=== PATIENT | male | born 1975 | race Caucasian/White ===

== ENCOUNTER 2023-05-07 00:22 | Emergency (ER) | payer OTHER | END 2023-05-07 01:15 | disposition left against medical advice (07) | LOC: ER 00:25 | DX: Z53.21 Procedure and treatment not carried out due to patient leaving prior to being seen by health care provider (principal) ==

== ENCOUNTER 2023-05-09 04:14 | Emergency (ER) | payer OTHER ==
[~2023-05-09] VITALS: Ht 177.8 cm; Wt 77.1 kg
[2023-05-09 05:07] LABS: *BILIRUBIN,URIN NEGATIVE (NEGATIVE); *BLOOD, URINE NEGATIVE (NEGATIVE); *CLARITY,URINE CLEAR (CLEAR); *COLOR,URINE YELLOW (YELLOW); *KETONES,URINE NEGATIVE (NEGATIVE); *PROTEIN,URINE NEGATIVE (NEGATIVE); *UROBILINOGEN,URINE 0.2 E.U./dl (NORMAL); LEUKOCYTE ESTERASE ,URINE NEGATIVE (NEGATIVE); NITRITE, URINE NEGATIVE (NEGATIVE); PH,URINE 5.5 (5.0-8.0); UGLUCOSE NEGATIVE (NEGATIVE)
[2023-05-09 05:12] LABS: BASOPHILS # (AUTO) 0.1 K/UL (0.0-0.2); BASOPHILS % (AUTO) 0.6 % (0.0-2.0); EOSINOPHILS # (AUTO) 0.2 K/uL (0.0-0.7); EOSINOPHILS % (AUTO) 2.3 % (0.0-7.0); HEMATOCRIT 40.2 % (36.7-47.1); HEMOGLOBIN 13.6 g/dL (12.5-16.3); LYMPHOCYTES # (AUTO) 3.1 K/uL (0.8-4.8); LYMPHOCYTES % (AUTO) 37.1 % (20.5-51.5); MEAN CORPUSCULAR HEMOGLOBIN 31.6 uug (23.8-33.4); MEAN CORPUSCULAR HGB CONC 34 g/dL (32.5-36.3); MEAN CORPUSCULAR VOLUME 93.1 fL (73.0-96.2); MONOCYTES # (AUTO) 0.8 K/uL (0.1-1.30); NEUTROPHILS # (AUTO) 4.3 K/uL (1.8-8.9); PLATELET COUNT (AUTO) 228 K/uL (152-348); RED BLOOD CELL COUNT(AUTO) 4.32 MIL/uL (4.06-5.63); RED CELL DISTRIBUTION WIDTH 13.6 % (12.1-16.2); WHITE BLOOD COUNT (AUTO) 8.4 K/uL (3.6-10.2)
[2023-05-09 05:17] LABS: *AMPHETAMINE, URINE NEGATIVE (NEGATIVE); *BARBITURATE, URINE NEGATIVE (NEGATIVE); *BENZODIAZEPINE, URINE NEGATIVE (NEGATIVE); *CANNABINOID, URINE NEGATIVE (NEGATIVE); *COCCAINE, URINE NEGATIVE (NEGATIVE); *OPIATE, URINE NEGATIVE (NEGATIVE); *PHENCYCLIDINE SCREEN,URINE NEGATIVE (NEGATIVE); FENTANYL, URINE NEGATIVE (NEGATIVE)
[2023-05-09 05:22] LABS: CALCIUM 8.8 mg/dL (8.5-10.1); CARBON DIOXIDE 26 mmol/L (21-32); CHLORIDE 103 mmol/L (98-107); CREATININE 0.8 mg/dL (0.6-1.3); GLUCOSE 97 mg/dL (74-106); POTASSIUM 3.8 mmol/L (3.5-5.1); SODIUM SERUM 139 mmol/L (136-145); UREA NITROGEN, BLOOD 16 mg/dL (7-18)
[2023-05-09 05:24] LABS: DIFFERENTIAL COMMENT 1
[2023-05-09 05:28] LABS: ACETAMINOPHEN < 2.0 ug/mL (10-30); ALANINE AMINOTRANSFERASE 31 U/L (16-63); ALBUMIN 3.5 g/dL (3.4-5.0); ALKALINE PHOSPHATASE 131 U/L (50-136); ASPARTATE AMINOTRANSFERASE 5 U/L (15-37); BILIRUBIN,DIRECT 0.1 mg/dL (0.0-0.2); BILIRUBIN,TOTAL 0.2 mg/dL (0.2-1.0); TOTAL PROTEIN, SERUM 6.6 g/dL (6.4-8.2)
[2023-05-09 06:09] LABS: ETHANOL < 3 MG/DL (0-10)
[2023-05-09 06:14] VITALS: BP 133/77; O2SAT 97
== END 2023-05-09 06:14 | disposition home or self-care (01) ==
LOC: ER 04:17
DX: R45.851 Suicidal ideations (principal); F20.9 Schizophrenia, unspecified; F17.210 Nicotine dependence, cigarettes, uncomplicated; Z59.00 Homelessness unspecified; Z20.822 Contact with and (suspected) exposure to COVID-19
CPT/HCPCS: 36415; 85025; A4606; A4663; G0480

== ENCOUNTER 2023-06-03 18:26 | Emergency (ER) | payer OTHER ==
[~2023-06-03] VITALS: Ht 177.8 cm; Wt 77.1 kg
[2023-06-03 19:16] VITALS: BP 132/87; O2SAT 96
== END 2023-06-03 19:17 | disposition home or self-care (01) ==
LOC: ER 18:28
DX: F41.9 Anxiety disorder, unspecified (principal); F32.A Depression, unspecified; F17.210 Nicotine dependence, cigarettes, uncomplicated
CPT/HCPCS: A4606; A4663